=== PATIENT | male | born 1970 | race Caucasian/White ===

== ENCOUNTER 2016-05-24 07:15 | Inpatient (IN) | payer BC, OTHER ==
[~2016-05-24] VITALS: Ht 185.4 cm; Wt 66.7 kg
[2016-05-25] MEDS ORDERED: MULT-416 PO (11:25)
[2016-05-25] MEDS ORDERED: PANT40TA4 PO (11:25)
[2016-05-25] MEDS ORDERED: LISI10TA5 PO (11:25)
[2016-05-25] MEDS ORDERED: CHOL100043 PO (11:25)
[2016-05-25] MEDS ORDERED: LEVE750T54 PO (11:25)
[2016-05-25] MEDS ORDERED: LEVO50TA PO (11:25)
[2016-05-25] MEDS ORDERED: CITA40TA11 PO (11:25)
[2016-05-25] MEDS ORDERED: BUPRENORPHINE HCL 2 MG TAB.SUBL SL PRN (11:30)
[2016-05-25] MEDS ORDERED: METHOCARBAMOL 750 MG TABLET PO PRN (11:30)
[2016-05-25] MEDS ORDERED: IBUPROFEN 400 MG TABLET PO PRN (11:30)
[2016-05-25] MEDS ORDERED: THIAMINE HCL 200 MG/2 ML VIAL IM ONE (11:30)
[2016-05-25] MEDS ORDERED: HYDROXYZINE PAMOATE 25 MG CAPSULE PO PRN (11:30)
[2016-05-25] MEDS ORDERED: MIRALAX 17 GM POWD.PACK PO PRN (11:30)
[2016-05-25] MEDS ORDERED: ONDANSETRON ODT 4 MG TAB.RAPDIS SL PRN (11:30)
[2016-05-25] MEDS ORDERED: PROMETHAZINE HCL 25 MG/1 ML VIAL IM PRN (11:30)
[2016-05-25] MEDS ORDERED: LORAZEPAM 2 MG/1 ML VIAL IM PRN (11:30)
[2016-05-25] MEDS ORDERED: LOPERAMIDE HCL 2 MG CAPSULE PO PRN ×2 (11:30)
[2016-05-25] MEDS ORDERED: MAG HYDROX/AL HYDROX/SIMETH 30 ML LIQUID UDC PO PRN (11:30)
[2016-05-25] MEDS ORDERED: MAGNESIUM HYDROXIDE 30 ML LIQUID UDC PO PRN (11:30)
[2016-05-25] MEDS ORDERED: LORAZEPAM 1 MG TABLET PO PRN ×2 (11:30)
[2016-05-25] MEDS ORDERED: DICYCLOMINE HCL 20 MG TABLET PO PRN (11:30)
[2016-05-25] MEDS ORDERED: diphenhydrAMINE 50 MG CAPSULE PO PRN (11:30)
[2016-05-25] MEDS ORDERED: CLONIDINE HCL 0.1 MG TABLET PO PRN (11:30)
[2016-05-25] MEDS ORDERED: ACETAMINOPHEN 325 MG TABLET PO PRN (11:30)
[2016-05-25 11:57] LABS: *AMPHETAMINE, URINE NEGATIVE (NEGATIVE); *BARBITURATE, URINE NEGATIVE (NEGATIVE); *CANNABINOID, URINE NEGATIVE (NEGATIVE); *COCCAINE, URINE NEGATIVE (NEGATIVE); *OPIATE, URINE NEGATIVE (NEGATIVE); *PHENCYCLIDINE SCREEN,URINE NEGATIVE (NEGATIVE)
[2016-05-25 12:34] LABS: BASOPHILS # (AUTO) 0.1 K/uL (0.0-0.2); EOSINOPHILS % (AUTO) 0.2 % (0.0-7.0); HEMOGLOBIN 14.1 g/dL (14.0-18.0); LYMPHOCYTES # (AUTO) 0.9 K/uL (0.8-4.8); LYMPHOCYTES % (AUTO) 11.2 % (20.5-51.5); MEAN CORPUSCULAR HEMOGLOBIN 33.6 uug (27.0-31.0); MEAN CORPUSCULAR HGB CONC 34 g/dL (32.0-37.0); MEAN CORPUSCULAR VOLUME 99.9 fL (82.0-92.0); MONOCYTES # (AUTO) 1.3 K/uL (0.1-1.30); MONOCYTES % (AUTO) 15.6 % (0.0-11.0); NEUTROPHILS # (AUTO) 6.1 K/uL (1.8-8.9); PLATELET COUNT (AUTO) 456 K/uL (150-450); RED BLOOD CELL COUNT(AUTO) 4.21 MIL/uL (4.70-6.10); RED CELL DISTRIBUTION WIDTH 13.2 % (11.5-14.5); WHITE BLOOD COUNT (AUTO) 8.4 K/uL (4.0-11.2)
[2016-05-25] MEDS: LORAZEPAM 1 MG TABLET PO SCH ×3 (12:35→21:09)
[2016-05-25 12:42] LABS: ETHANOL < 3 MG/DL (0-0)
[2016-05-25 12:44] LABS: ALANINE AMINOTRANSFERASE 44 U/L (16-63); ALKALINE PHOSPHATASE 137 U/L (50-136); AMYLASE 38 U/L (25-115); ASPARTATE AMINOTRANSFERASE 48 U/L (15-37); CALCIUM 9.6 mg/dL (8.5-10.1); CARBON DIOXIDE 27 mmol/L (21-32); CHLORIDE 97 mmol/L (98-107); CREATININE 0.7 mg/dL (0.6-1.3); GFR 122 mL/min (>60); GLUCOSE 98 mg/dL (74-106); LIPASE 143 U/L (73-393); MAGNESIUM 1.3 mg/dL (1.8-2.4); POTASSIUM 3.7 mmol/L (3.5-5.1); SODIUM SERUM 136 mmol/L (136-145); TOTAL PROTEIN, SERUM 7.9 g/dL (6.4-8.2); UREA NITROGEN, BLOOD 8 mg/dL (7-18)
[2016-05-25 12:45] LABS: AMMONIA < 10 umol/L (11-32)
[2016-05-25 12:53] LABS: THYROID STIMULATING HORMONE 0.124 mIU/mL (0.358-3.740)
[2016-05-25 13:33] LABS: HIV-1/2 ANTIBODY NON REACTIVE (NONREACTIVE)
[2016-05-25 13:34] LABS: HIV-1 p24 ANTIGEN NON REACTIVE (NONREACTIVE)
[2016-05-25] MEDS ORDERED: MAGNESIUM OXIDE 400 MG TABLET PO ONE (13:45)
[2016-05-25 13:57] LABS: BAND % (MANUAL) 1 % (0-10); LYMPHOCYTES % (MANUAL) 17 % (20-40); MONOCYTES % (MANUAL) 13 % (2-10); NEUTROPHILS % (MANUAL) 69 % (42-75)
[2016-05-25 13:58] LABS: PLATELET ESTIMATE INCREASED
[2016-05-25] MEDS: GABAPENTIN 300 MG CAPSULE PO SCH ×2 (14:44→21:10)
[2016-05-25 16:00] VITALS: BP 121/85
[2016-05-25] MEDS: KETOROLAC TROMETHAMINE 30 MG INJ IM PRN (17:23)
[2016-05-25] MEDS: LIDOCAINE 5% PATCH TD SCH (17:25)
[2016-05-25 20:00] VITALS: BP 106/71
[2016-05-25] MEDS: LEVETIRACETAM 500 MG TABLET PO SCH (21:09)
[2016-05-26 04:00] VITALS: BP 119/65
[2016-05-26] MEDS: PANTOPRAZOLE SODIUM 40 MG TABLET.DR PO SCH (07:04)
[2016-05-26] MEDS: LEVOTHYROXINE SODIUM 50 MCG TABLET PO SCH (07:04)
[2016-05-26 08:00] VITALS: BP 108/69
[2016-05-26] MEDS ORDERED: TUBERCULIN,PURIF.PROT.DERIV. 5 TU/0.1 ML TEST ID ONE (09:00)
[2016-05-26 09:18] LABS: VIT D, 25-HYDROXY 63.9 ng/mL (30.0-100.0)
[2016-05-26] MEDS: GABAPENTIN 300 MG CAPSULE PO SCH ×3 (09:41→20:47)
[2016-05-26] MEDS: LIDOCAINE 5% PATCH TD SCH (09:41)
[2016-05-26] MEDS: LORAZEPAM 1 MG TABLET PO SCH ×3 (09:41→20:47)
[2016-05-26] MEDS: MULTIVITAMINS,THERAPEUTIC TABLET PO SCH (09:42)
[2016-05-26] MEDS: LISINOPRIL 10 MG TABLET PO SCH (09:42)
[2016-05-26] MEDS: THIAMINE HCL 100 MG TABLET PO SCH (09:42)
[2016-05-26] MEDS: FOLIC ACID 1 MG TABLET PO SCH (09:43)
[2016-05-26] MEDS: LEVETIRACETAM 500 MG TABLET PO SCH ×2 (09:44→20:46)
[2016-05-26] MEDS: KETOROLAC TROMETHAMINE 30 MG INJ IM PRN ×3 (09:44→23:46)
[2016-05-26] MEDS: CHOLECALCIFEROL 1,000 UNIT TABLET PO SCH (09:44)
[2016-05-26 12:00] VITALS: BP 121/85
[2016-05-26 12:15] LABS: HCV AB <0.1 s/co ratio (0.0-0.9); HEPATITIS B CORE AB, IgM Negative (Negative); HEPATITIS B SURFACE AG Negative (Negative)
[2016-05-26] MEDS: BUPRENORPHINE HCL 2 MG TAB.SUBL SL SCH ×2 (14:59→20:48)
[2016-05-26 16:00] VITALS: BP 106/72
[2016-05-26 20:00] VITALS: BP 102/78
[2016-05-27] VITALS: BP 110/86
[2016-05-27] MEDS ORDERED: ALBUTEROL SULFATE 8 GM HFA.AER.AD ONE (00:27)
[2016-05-27] MEDS: ALBUTEROL SULFATE 8 GM HFA.AER.AD IH PRN (00:29)
[2016-05-27] MEDS: PANTOPRAZOLE SODIUM 40 MG TABLET.DR PO SCH (06:59)
[2016-05-27] MEDS: LEVOTHYROXINE SODIUM 50 MCG TABLET PO SCH (07:00)
[2016-05-27 08:32] LABS: BASOPHILS # (AUTO) 0.1 K/uL (0.0-0.2); EOSINOPHILS # (AUTO) 0.2 K/uL (0.0-0.7); EOSINOPHILS % (AUTO) 2.1 % (0.0-7.0); HEMOGLOBIN 12.8 g/dL (14.0-18.0); LYMPHOCYTES # (AUTO) 2.4 K/uL (0.8-4.8); LYMPHOCYTES % (AUTO) 25.2 % (20.5-51.5); MEAN CORPUSCULAR HGB CONC 34 g/dL (32.0-37.0); MEAN CORPUSCULAR VOLUME 100.9 fL (82.0-92.0); MONOCYTES # (AUTO) 0.7 K/uL (0.1-1.30); MONOCYTES % (AUTO) 7.6 % (0.0-11.0); NEUTROPHILS % (AUTO) 64.1 % (38.5-71.5); PLATELET COUNT (AUTO) 422 K/uL (150-450); RED CELL DISTRIBUTION WIDTH 12.9 % (11.5-14.5); WHITE BLOOD COUNT (AUTO) 9.4 K/uL (4.0-11.2)
[2016-05-27 08:40] LABS: RED BLOOD CELL COUNT(AUTO) 3.76 MIL/uL (4.70-6.10)
[2016-05-27] MEDS: MULTIVITAMINS,THERAPEUTIC TABLET PO SCH (08:45)
[2016-05-27] MEDS: LORAZEPAM 1 MG TABLET PO SCH ×4 (08:45→20:59)
[2016-05-27] MEDS: GABAPENTIN 300 MG CAPSULE PO SCH ×3 (08:45→21:00)
[2016-05-27] MEDS: THIAMINE HCL 100 MG TABLET PO SCH (08:45)
[2016-05-27] MEDS: LEVETIRACETAM 500 MG TABLET PO SCH ×2 (08:46→21:00)
[2016-05-27] MEDS: LISINOPRIL 10 MG TABLET PO SCH (08:46)
[2016-05-27] MEDS: FOLIC ACID 1 MG TABLET PO SCH (08:46)
[2016-05-27] MEDS: CHOLECALCIFEROL 1,000 UNIT TABLET PO SCH (08:46)
[2016-05-27] MEDS: LIDOCAINE 5% PATCH TD SCH (08:49)
[2016-05-27] MEDS: KETOROLAC TROMETHAMINE 30 MG INJ IM PRN ×2 (08:56→21:03)
[2016-05-27 09:00] VITALS: BP 100/68
[2016-05-27] MEDS ORDERED: BUPRENORPHINE HCL 2 MG TAB.SUBL SL SCH (09:00)
[2016-05-27 09:05] LABS: ALBUMIN 3.5 g/dL (3.4-5.0); BILIRUBIN,DIRECT 0.1 mg/dL (0.0-0.2); BILIRUBIN,TOTAL 0.6 mg/dL (0.2-1.0); CALCIUM 9.2 mg/dL (8.5-10.1); CREATININE 0.9 mg/dL (0.6-1.3); MAGNESIUM 1.5 mg/dL (1.8-2.4); POTASSIUM 3.9 mmol/L (3.5-5.1); TOTAL PROTEIN, SERUM 7.3 g/dL (6.4-8.2)
[2016-05-27 09:24] LABS: FOLIC ACID 13.5 NG/ML (8.6-58.9)
[2016-05-27] MEDS ORDERED: MAGNESIUM OXIDE 400 MG TABLET PO ONE (11:00)
[2016-05-27 12:40] VITALS: BP 115/72
[2016-05-27] MEDS: BUPRENORPHINE HCL 2 MG TAB.SUBL SL SCH ×2 (14:26→21:01)
[2016-05-27] MEDS: CITALOPRAM 20 MG TABLET PO SCH (14:26)
[2016-05-27] MEDS ORDERED: IBUPROFEN 600 MG TABLET PO PRN (17:30)
[2016-05-27 17:35] VITALS: BP 108/68
[2016-05-27 20:00] VITALS: BP 115/75
[2016-05-28] VITALS: BP 118/71
[2016-05-28] MEDS: LEVOTHYROXINE SODIUM 50 MCG TABLET PO SCH (06:32)
[2016-05-28] MEDS: PANTOPRAZOLE SODIUM 40 MG TABLET.DR PO SCH (06:32)
[2016-05-28 08:00] VITALS: BP 102/69
[2016-05-28] MEDS: THIAMINE HCL 100 MG TABLET PO SCH (09:22)
[2016-05-28] MEDS: LEVETIRACETAM 500 MG TABLET PO SCH ×2 (09:22→21:29)
[2016-05-28] MEDS: CHOLECALCIFEROL 1,000 UNIT TABLET PO SCH (09:23)
[2016-05-28] MEDS: LISINOPRIL 10 MG TABLET PO SCH (09:23)
[2016-05-28] MEDS: CITALOPRAM 20 MG TABLET PO SCH (09:23)
[2016-05-28] MEDS: MULTIVITAMINS,THERAPEUTIC TABLET PO SCH (09:23)
[2016-05-28] MEDS: FOLIC ACID 1 MG TABLET PO SCH (09:23)
[2016-05-28] MEDS: GABAPENTIN 300 MG CAPSULE PO SCH ×3 (09:23→21:29)
[2016-05-28] MEDS: LORAZEPAM 1 MG TABLET PO SCH ×3 (09:23→21:29)
[2016-05-28] MEDS: BUPRENORPHINE HCL 2 MG TAB.SUBL SL SCH ×3 (09:23→21:31)
[2016-05-28] MEDS: LIDOCAINE 5% PATCH TD SCH (09:24)
[2016-05-28] MEDS: KETOROLAC TROMETHAMINE 30 MG INJ IM PRN ×3 (09:24→22:03)
[2016-05-28] MEDS: ALBUTEROL SULFATE 8 GM HFA.AER.AD IH PRN (09:25)
[2016-05-28 12:00] VITALS: BP 112/76
[2016-05-28 16:00] VITALS: BP 118/78
[2016-05-28 20:00] VITALS: BP 112/80
[2016-05-29] MEDS: LEVOTHYROXINE SODIUM 50 MCG TABLET PO SCH (06:28)
[2016-05-29] MEDS: PANTOPRAZOLE SODIUM 40 MG TABLET.DR PO SCH (06:28)
[2016-05-29 07:27] LABS: CALCIUM 8.9 mg/dL (8.5-10.1); CREATININE 0.8 mg/dL (0.6-1.3); MAGNESIUM 1.8 mg/dL (1.8-2.4); POTASSIUM 4.5 mmol/L (3.5-5.1)
[2016-05-29 08:00] VITALS: BP 113/83
[2016-05-29] MEDS: LORAZEPAM 1 MG TABLET PO SCH ×2 (09:03→21:15)
[2016-05-29] MEDS: FOLIC ACID 1 MG TABLET PO SCH (09:03)
[2016-05-29] MEDS: CITALOPRAM 20 MG TABLET PO SCH (09:03)
[2016-05-29] MEDS: KETOROLAC TROMETHAMINE 30 MG INJ IM PRN ×3 (09:03→22:47)
[2016-05-29] MEDS: BUPRENORPHINE HCL 2 MG TAB.SUBL SL SCH ×2 (09:03→21:15)
[2016-05-29] MEDS: MULTIVITAMINS,THERAPEUTIC TABLET PO SCH (09:04)
[2016-05-29] MEDS: THIAMINE HCL 100 MG TABLET PO SCH (09:04)
[2016-05-29] MEDS: CHOLECALCIFEROL 1,000 UNIT TABLET PO SCH (09:04)
[2016-05-29] MEDS: LISINOPRIL 10 MG TABLET PO SCH (09:04)
[2016-05-29] MEDS: GABAPENTIN 300 MG CAPSULE PO SCH ×3 (09:04→21:14)
[2016-05-29] MEDS: LIDOCAINE 5% PATCH TD SCH (09:05)
[2016-05-29] MEDS: LEVETIRACETAM 500 MG TABLET PO SCH ×2 (09:05→21:14)
[2016-05-29 14:27] VITALS: BP 110/78
[2016-05-29 16:41] VITALS: BP 115/78
[2016-05-29 20:00] VITALS: BP 131/88
[2016-05-30] MEDS: PANTOPRAZOLE SODIUM 40 MG TABLET.DR PO SCH (06:10)
[2016-05-30] MEDS: LEVOTHYROXINE SODIUM 50 MCG TABLET PO SCH (06:10)
[2016-05-30] MEDS: KETOROLAC TROMETHAMINE 30 MG INJ IM PRN ×3 (06:10→23:50)
[2016-05-30 08:00] VITALS: BP 116/72
[2016-05-30] MEDS: MULTIVITAMINS,THERAPEUTIC TABLET PO SCH (09:48)
[2016-05-30] MEDS: GABAPENTIN 300 MG CAPSULE PO SCH ×3 (09:48→21:37)
[2016-05-30] MEDS: THIAMINE HCL 100 MG TABLET PO SCH (09:48)
[2016-05-30] MEDS: LEVETIRACETAM 500 MG TABLET PO SCH ×2 (09:49→21:36)
[2016-05-30] MEDS: CITALOPRAM 20 MG TABLET PO SCH (09:49)
[2016-05-30] MEDS: CHOLECALCIFEROL 1,000 UNIT TABLET PO SCH (09:50)
[2016-05-30] MEDS: LISINOPRIL 10 MG TABLET PO SCH (09:50)
[2016-05-30] MEDS: FOLIC ACID 1 MG TABLET PO SCH (09:50)
[2016-05-30] MEDS: LIDOCAINE 5% PATCH TD SCH (09:51)
[2016-05-30 12:00] VITALS: BP 120/76
[2016-05-30] MEDS ORDERED: BACLOFEN 20 MG TABLET PO PRN (12:15)
[2016-05-30] MEDS: ACETAMINOPHEN 325 MG TABLET PO SCH ×2 (14:45→21:38)
[2016-05-30] MEDS ORDERED: NAPROXEN 500 MG TABLET PO ONE (15:00)
[2016-05-30 16:00] VITALS: BP 122/86
[2016-05-30 18:40] LABS: *AMPHETAMINE, URINE NEGATIVE (NEGATIVE); *BARBITURATE, URINE NEGATIVE (NEGATIVE); *CANNABINOID, URINE NEGATIVE (NEGATIVE)
[2016-05-30 18:51] LABS: *COCCAINE, URINE NEGATIVE (NEGATIVE); *OPIATE, URINE NEGATIVE (NEGATIVE); *PHENCYCLIDINE SCREEN,URINE NEGATIVE (NEGATIVE)
[2016-05-30 20:00] VITALS: BP 127/85
[2016-05-30] MEDS: NAPROXEN 500 MG TABLET PO SCH (21:37)
[2016-05-30 23:45] VITALS: BP 137/92
[2016-05-30] MEDS ORDERED: Acetaminophen PO (23:56)
[2016-05-30] MEDS ORDERED: HYDR-3895 PO (23:56)
[2016-05-30] MEDS ORDERED: Gabapentin PO (23:56)
[2016-05-30] MEDS ORDERED: Baclofen PO (23:56)
[2016-05-30] MEDS ORDERED: Naproxen PO (23:56)
[2016-05-30] MEDS ORDERED: DIPH50CA37 PO (23:56)
[2016-05-30] MEDS ORDERED: LIDO30AD10 TD (23:56)
[2016-05-31] VITALS: BP 137/92
[2016-05-31] MEDS: PANTOPRAZOLE SODIUM 40 MG TABLET.DR PO SCH (06:27)
[2016-05-31] MEDS: LEVOTHYROXINE SODIUM 50 MCG TABLET PO SCH (06:27)
[2016-05-31] MEDS: KETOROLAC TROMETHAMINE 30 MG INJ IM PRN (06:36)
[2016-05-31 08:16] VITALS: BP 130/78
[2016-05-31] MEDS: NAPROXEN 500 MG TABLET PO SCH (08:16)
[2016-05-31] MEDS: ACETAMINOPHEN 325 MG TABLET PO SCH (08:16)
[2016-05-31] MEDS: LISINOPRIL 10 MG TABLET PO SCH (08:16)
[2016-05-31] MEDS: GABAPENTIN 300 MG CAPSULE PO SCH (08:16)
[2016-05-31] MEDS: MULTIVITAMINS,THERAPEUTIC TABLET PO SCH (08:16)
[2016-05-31] MEDS: CHOLECALCIFEROL 1,000 UNIT TABLET PO SCH (08:17)
[2016-05-31] MEDS: CITALOPRAM 20 MG TABLET PO SCH (08:17)
[2016-05-31] MEDS: LEVETIRACETAM 500 MG TABLET PO SCH (08:17)
[2016-05-31] MEDS: THIAMINE HCL 100 MG TABLET PO SCH (08:17)
[2016-05-31] MEDS: FOLIC ACID 1 MG TABLET PO SCH (08:18)
[2016-05-31] MEDS: LIDOCAINE 5% PATCH TD SCH (08:18)
== END 2016-05-31 09:35 | disposition other institution (70) | DRG 895 ==
LOC: SRC 05-25 09:46
PROVIDERS: ADMIT Internal Medicine; ATTEND Internal Medicine
PROC: HZ2ZZZZ Detoxification Services for Substance Abuse Treatment (ICD-10-PCS; principal; 2016-05-25)
PROC: HZ41ZZZ Group Counseling for Substance Abuse Treatment, Behavioral (ICD-10-PCS; 2016-05-27)
PROC: HZ31ZZZ Individual Counseling for Substance Abuse Treatment, Behavioral (ICD-10-PCS; 2016-05-28)
DX: F10.230 Alcohol dependence with withdrawal, uncomplicated (principal); F33.1 Major depressive disorder, recurrent, moderate; G40.919 Epilepsy, unspecified, intractable, without status epilepticus; K70.10 Alcoholic hepatitis without ascites; K29.20 Alcoholic gastritis without bleeding; F11.23 Opioid dependence with withdrawal; J44.9 Chronic obstructive pulmonary disease, unspecified; E03.9 Hypothyroidism, unspecified; Z82.49 Family history of ischemic heart disease and other diseases of the circulatory system; Z81.1 Family history of alcohol abuse and dependence; Z81.3 Family history of other psychoactive substance abuse and dependence; Y90.0 Blood alcohol level of less than 20 mg/100 ml; E55.9 Vitamin D deficiency, unspecified; G89.29 Other chronic pain; E83.42 Hypomagnesemia; I10 Essential (primary) hypertension; Z79.899 Other long term (current) drug therapy; K76.0 Fatty (change of) liver, not elsewhere classified; K70.9 Alcoholic liver disease, unspecified
CPT/HCPCS: 36415; 70030-TC; 76700; 80307; 82306; 82746; 83690; 83735; 84443; 85025; 86580; 86592; 86705; 86803; 87340; 87806; G6040-TC; J1885; J3535